=== PATIENT | male | born 1945 | race Caucasian/White ===

== ENCOUNTER 2023-11-30 06:57 | Emergency (ER) | payer MEDICARE, OTHER, SELFPAY ==
[2023-11-30 06:59] VITALS: BP 166/73
--- NOTE | 2023-11-30 07:47 | ED.GENMED ---
History of Present Illness
General
Chief Complaint: Nose Bleed
Source: patient
Exam Limitations: none
Time Seen by Provider: 11/30/23 07:08
Nursing documentation reviewed up to this point in time: agreed with
History of Present Illness
History of Present Illness:
78 y/o M with h/o polycythemia vera, htn, hld
started spontaneously with L sided epistaxis this mroning at 5 am without provocation
pt has never had a nose bleed
goes for phleboltomy every 1-2 mo
on baby aspirin
no headache but feels al ittle lightheaded
tried holding pressure but still oozing from L nostril and also in the back of throat
Past History
Past History
ED Past Medical History: Other (polycythemia vera)
Review of Systems
Review of Systems
Allergies reviewed?: Yes
All Other Systems: Not applicable
Phy Exam
Physical Exam
Physical Exam:
GENERAL: Alert , in no apparent distress
EYE: pupils equal and reactive
NECK: Supple
ENT: o/p clr, mmm.
+ epistaxis L nostril, oozing, not severely but some blood in L posterior pharynx
tried to have pt gargle but he chokes when he does that
CARDIAC: Regular rate and rhythm .
LUNGS: Clear breath sounds bilaterally, no acute respiratory distress, no wheezes/rales/rhonchi
NEUROLOGICAL: Alert and oriented, no focal neuro deficits
SKIN: Warm and dry, skin intact.
PSYCH: Normal and appropriate interaction.
Course
Orders/Labs/Results
Orders:
Orders
11/30/23 07:39
Tranexamic Acid 1,000 mg .ROUTE .STK-MED ONE
11/30/23 07:57
Complete Blood Count/With Diff Urgent
PTT Urgent
Prothrombin Time Urgent
11/30/23 09:38
Phenylephrine 0.5% Regular Spr [Fausto-Synephrine 0.5% Nasal [place]] See Dose Instructions NASAL NOW STA
Abnormal Lab Results
11/30/23
07:57
MCH 24.7 L pg
(27.0-31.0)
MCHC 29.7 L g/dL
(33.0-37.0)
RDW 16.0 H %
(11.5-14.5)
MPV 11.9 H fL
(7.4-10.4)
Abs Immat Gran (auto) 0.1 H 10^3/uL
(0-0.05)
Absolute Lymphs (auto) 0.5 L 10^3/uL
(1.2-3.4)
Absolute Basos (auto) 0.3 H 10^3/uL
(0-0.2)
Immature Gran % 1.5 H %
(0-0.5)
Lymphocytes % 7.6 L %
(20.5-51.1)
Basophils % 4.6 H %
(0-2)
PT 15.5 H Sec
(11.4-14.6)
11/30/23 07:57
Vital Signs
Initial and Last Documented VS:
Initial Vital Signs
Temp Pulse Resp BP Pulse Ox
98.5 F 69 18 166/73 98
11/30/23 06:59 11/30/23 06:59 11/30/23 06:59 11/30/23 06:59 11/30/23 06:59
Last Documented Vital Signs
Temp Pulse Resp BP Pulse Ox
98.5 F 63 16 167/59 97
11/30/23 06:59 11/30/23 10:56 11/30/23 10:56 11/30/23 10:56 11/30/23 10:56
Procedures
Nosebleed
Drug treatment: Lidocaine and Tranexamic Acid
Treatment: local pressure applied and other (rhinorocket 5.5)
Post treatment bleeding: still some oozing (observed and did well; inflated balloon which helped oozing stop)
MDM/Problems Addressed
Differential Diagnosis Includes:
epistaxis, thrombocytopenia
MDM/Problems Addressed:
78 y/o M polycythemia
just on aspirin 81
here with epistaxis L nostril spontaneously
oozing, no signfiicant clots
teresa down back of throat some but was holding neck extended
unable to visualize exact location of bleeding
txa and lidocaine cotton ball applied with clamp
still blood in nare
packed with rhinorocket and did well
did have to inflate slightly more air to control minimal oozing
hg stable,
plt normal
pt will f/u with ent in 2 days.
*Critical Care Note
Total Time (30-74mins, 75-104mins- exclusive of procedures): Not Applicable
ED Attending Note
-
Portions of this chart may have been created with voice recognition software.� Occasional wrong word or��sound alike� substitutions may have occurred due to the inherent limitations of voice recognition software.
Discharge Plan
Departure
Patient Disposition: Home (Routine Discharge)
Date of Disposition: 11/30/23
Time of Disposition: 09:38
Patient with high blood pressure during this ER visit?: Yes
Condition: Fair
Covid-19: Not Applicable
Discharge Problem:
Acute anterior epistaxis
Instructions: Nosebleeds (DC)
Referrals:
Rubens Millan MD [Family Provider] - Follow up in 2-3 days
Blair Goldstein MD [Active] - Follow up in 2-3 days
Activity Restrictions/Additional Instructions:
You had a nosebleed from your left nostril. We applied packing. This needs to stay in for 2 to 3 days. You should call today for an appointment with ear nose and throat and tell them that you were in the ER and had your nose packed for a
nosebleed and that you need a follow-up appointment on Tuesday. If you cannot be seen by Tuesday or Tuesday you should come to the emergency department to have us remove the packing. In the meantime try not to blow your nose. You can use
Fausto-Synephrine twice a day in your right nostril to help you avoid congestion. Only do this for 2 days. Try not to touch or photo with the packing. If you start bleeding again you should return to the emergency department.
Interventions
Interventions:
*Risk Screen - Suicide Last Done: 11/30/23 06:59
*General Assessment Last Done: 11/30/23 06:59
*Neglect/Abuse Screening Last Done: 11/30/23 06:59
*ED COVID-19 Vaccine History Last Done: 11/30/23 08:02
*Nursing Disposition Last Done: 11/30/23 10:56
ED-EENT Assessment Last Done: 11/30/23 09:57
Discharge Date and Time
Discharge Date/Time: 11/30/23 10:57
Print Language: GERMAN
[2023-11-30 08:00] VITALS: BP 170/63
[2023-11-30 08:23] LABS: Hematocrit 48.1 % (39.0-52.0); Hemoglobin 14.3 g/dL (13.0-18.0); Mean Corp Hgb Conc. 29.7 g/dL (33.0-37.0); Mean Corpuscular Hgb 24.7 pg (27.0-31.0); Mean Corpuscular Volume 82.9 fL (80.0-94.0); White Blood Cell Count 6.1 10^3/uL (4.8-10.8)
[2023-11-30 08:24] LABS: INR 1.23; PT 15.5 Sec (11.4-14.6)
[2023-11-30 09:00] VITALS: BP 167/59
[2023-11-30 09:26] LABS: Platelet Count 214 10^3/uL (130-400)
[2023-11-30 09:27] LABS: % Basophils 4.6 % (0-2); % Eosinophils 5.6 % (0-6); % Immature Granulocytes 1.5 % (0-0.5); % Lymphocytes 7.6 % (20.5-51.1); % Monocytes 6.4 % (1.7-9.3); % Neutrophils 74.3 % (42.2-75.2); Absolute Basophils 0.3 10^3/uL (0-0.2); Absolute Eosinophils 0.3 10^3/uL (0-0.7); Absolute Immature Granulocytes 0.1 10^3/uL (0-0.05); Absolute Lymphocytes 0.5 10^3/uL (1.2-3.4); Absolute Monocytes 0.4 10^3/uL (0.1-0.6); Absolute Neutrophils 4.5 10^3/uL (1.4-6.5); Mean Platelet Volume 11.9 fL (7.4-10.4); Nucleated Red Blood Cells % 0.5 % (-)
[2023-11-30] MEDS: NEO-SYNEPHRINE 0.5% NASAL SPRAY 1 SPRAY NASAL (09:53)
[2023-11-30 10:56] VITALS: BP 167/59
== END 2023-11-30 10:57 | disposition home or self-care (01) ==
LOC: EMR 06:57
PROVIDERS: Physician Assistant; EMERGENCY PHYSICIAN Student in an Organized Health Care Education/Training Program; FAMILY PHYSICIAN Internal Medicine
DX: R04.0 Epistaxis (principal); R42 Dizziness and giddiness; D45 Polycythemia vera; I10 Essential (primary) hypertension; E78.5 Hyperlipidemia, unspecified; Z79.82 Long term (current) use of aspirin; Z96.652 Presence of left artificial knee joint
CPT/HCPCS: 99283; 30901; 85025; 85610; 85730